=== PATIENT | female | born 1975 | race Caucasian/White ===

== ENCOUNTER → 2017-01-04 | Outpatient (CLI) | payer BC ==
[~2017-01-04] MED LIST: EFF75 PO; FLUT0.15; MULT-506 PO; TAMO20TA9 PO; VALA500T60 PO; VNTHFA/IN INH
[2017-01-04 15:02] VITALS: BP 113/80; PULSE 78; TEMP 36.8; O2SAT 100
--- NOTE | 2017-01-04 16:03 | Radiation Oncology Follow-Up ---
Radiation Oncology Follow-Up Date of Visit January 04, 2017. (Maria Moura PA-C) Reason For Visit One-month follow-up and cancer survivorship care plan (Maria Moura PA-C) Radiation Completion Date 11/24/16 (Maria Moura PA-C) Diagnosis (1) Breast cancer of upper-outer quadrant of right female breast Status: Acute Onset Date: 07/28/2016 Histology Subtype: ductal Stage: l (A) Permanent Comment: Abnormal right breast mammogram Status post core needle biopsy 07/28/2016 Invasive ductal carcinoma grade 1 Estrogen receptor positive, progesterone receptor positive, HER-2/betina negative Status post lumpectomy and sentinel lymph node biopsy 08/24/2016 Stage pT1a pN0M0 Prosigna score of 28 BRCA analysis negative Status post completion of radiation therapy 11/24/2016 received 6640 cGy Last Edited By: Maria Moura on Dec 05, 2016 13:33 (Maria Moura PA-C) History of Present Illness Ms. Redman is a 41-year-old premenopausal female who recently presented in July 2016. The mammogram on 07/15/2016 noted in asymmetry versus summation in the left breast and also a focal group of calcifications in the right breast. The patient then underwent a bilateral diagnostic mammogram and ultrasound on 07/19/2016 which revealed no evidence of malignancy in the left breast however there were fine pleomorphic calcifications in the upper outer quadrant of the right breast. The patient subsequently underwent core biopsies in the right breast at 11 o'clock position which revealed invasive ductal carcinoma that was grade 1. The tumor was noted to be estrogen receptor positive, progesterone receptor positive and HER-2 negative. The patient subsequently underwent an MRI of the breast on 08/05/2016 which only revealed postbiopsy changes in the right breast but no other evidence of disease. The patient subsequently under went a lumpectomy and sentinel lymph node biopsy by Dr. Lucía Diaz on 06/24/2017. The lumpectomy specimen did not reveal any evidence of invasive carcinoma and only biopsy changes. The sentinel lymph nodes were additionally also negative. The patient was seen in consultation by Dr. Raad Butterfield from medical oncology who do not advise for chemotherapy but recommended tamoxifen after the completion of radiation therapy. We are now seeing the patient in consultation to discuss the role of adjuvant radiation therapy. She underwent conventional radiation therapy. This was completed 11/24/2016. She received 6640 cGy. (Maria Moura PA-C) Interim History She's been doing well over the past month. She did have some continued changes of the skin. There was dryness and then some mild peeling. There continues to be a darker discoloration. She has noted no masses or tenderness and no change of the axilla. She's had no swelling of her arm. She was at the beach and did get a sunburn. This was not in the area of treatment. She is currently scheduled for follow-up mammogram on 01/16/2017 at [facility]. She also has follow-up appointments with the breast surgeon and medical oncologist. She is on tamoxifen and is tolerating this well. (Maria Moura PA-C) Allergies Coded Allergies: Cat Dander (Verified Allergy, Mild, Unknown , 09/20/16) Sulfa Antibiotics (Verified Allergy, Mild, Unknown , 09/20/16) Uncoded Allergies: Seasonal (Allergy, Mild, Unknown , 09/20/16) Home Medications Scheduled Multivitamin (Multivitamin), 1 TAB PO DAILY Tamoxifen (Nolvadex), 20 MG PO DAILY Venlafaxine Hcl (Effexor), 75 MG PO DAILY Scheduled PRN Albuterol Hfa (Ventolin Hfa), 2 PUFFS INH Q6H PRN for SOB/Wheezing Fluticasone Propionate (Nasal) (Flonase Allergy Relief), 2 SPRAYS NA DAILY PRN for Notification Valacyclovir (Valtrex), 500 MG PO BID PRN for Documentation Review of Systems Gastrointestinal: Symptoms: WNL Oral: Symptoms: No Problems Respiratory: Symptoms: WNL Other Respiratory: Started coughing - "getting cold" Urinary: Symptoms: WNL Skin: Symptoms: No Problems Other Skin Symptoms: Patient was recently at beach this weekend and was in sun - peeling Breast: Right Upper Arm Measurement: 26.5 Right Mid Arm Measurement: 22.4 Right Wrist Measurement: 15.8 Left Upper Arm Measurement: 26.9 Left Mid Arm Measurement: 22.1 Left Wrist Measurement: 15.4 Arm Dominence: Right Additional Notes: She completed a distress management report and answered "no" to all questions. (Maria Moura PA-C) Physical Exam Vital Signs Date Time Temp Pulse Resp B/P Pulse Ox O2 Delivery O2 Flow Rate FiO2 01/04/17 15:02 36.8 78 16 113/80 100 Fatigue: None General Appearance: no apparent distress Eyes: normal inspection, EOMI ENT: normal ENT inspection, hearing grossly normal Neck: no adenopathy Respiratory/Chest: lungs clear, no respiratory distress, no accessory muscle use Breast: Breast examination reveals well-healed incisions of the right breast. There is resolving hyperpigmentation. There is no wet or dry desquamation. There are no masses or tenderness and no axillary adenopathy. She has no skin retractions or nipple changes. There is no breast edema. Using the [place] score cosmesis she has a good outcome. The left breast showed no masses or tenderness and no axillary adenopathy. Cardiovascular: regular rate, rhythm, no gallop, no murmur Extremities: no pedal edema Neurologic/Psychiatric: no motor/sensory deficits, alert, normal mood/affect Skin: + pertinent finding (resolving sunburn) (Maria Moura PA-C) Assessment & Plan Plan: Continue regular follow-up with her primary care provider as well as breast surgeon and medical oncologist. Follow-up appointments have been scheduled. She has a mammogram scheduled for 01/16/2017 [facility]. She'll be seeing Dr. Lucía Diaz on 01/19/2017. And she'll follow-up with Dr. Butterfield in medical oncology on 03/20/2017. She continues on tamoxifen. Today we completed a cancer survivorship care plan. A copy the document was given to the patient. She was also seen and examined by Dr. Butterfield. We asked her to return to our office in 6 months. She'll call if she has any questions or concerns in the interim. (Maria Moura PA-C) I agree with note created by Maria Moura PA-C. I reviewed the patient's chart and information with her. I have examined and evaluated the patient. I reviewed relevant clinical information and answered the patient's and/or family' s questions. (Veeral. Butterfield MD) Total Time In Follow-Up I spent 20 minutes speaking to the patient and performing examination. I spent 20 minutes reviewing information, preparing the survivorship document, and completing this note. (Maria Moura PA-C) I spent 15 minutes examining and counseling the patient. (Veeral. Butterfield MD) Copy To Lucía Diaz MD; Raad Butterfield M.D.; Karla Mullen PA-C Problem Qualifiers (1) Breast cancer of upper-outer quadrant of right female breast: Estrogen receptor status: positive Qualified Codes: C50.411 - Malignant neoplasm of upper-outer quadrant of right female breast; Z17.0 - Estrogen receptor positive status [ER+]
== END | disposition home or self-care (01) ==
LOC: C.ONC 14:46
PROVIDERS: ATTEND Physician Assistant Medical
DX: Z08 Encounter for follow-up examination after completed treatment for malignant neoplasm (principal); Z92.3 Personal history of irradiation; Z85.3 Personal history of malignant neoplasm of breast

== ENCOUNTER → 2017-07-12 | Outpatient (CLI) | payer BC ==
[2017-07-12 14:30] VITALS: BP 146/84; PULSE 82; TEMP 36.8; O2SAT 99
--- NOTE | 2017-07-12 15:24 | Radiation Oncology Follow-Up ---
Radiation Oncology Follow-Up Date of Visit Jul 12, 2017. Reason For Visit 6 month follow-up Radiation Completion Date 11/24/16 Diagnosis (1) Breast cancer of upper-outer quadrant of right female breast Status: Resolved Onset Date: 07/28/2016 Histology Subtype: ductal Stage: l (A) Permanent Comment: Abnormal right breast mammogram Status post core needle biopsy 07/28/2016 Invasive ductal carcinoma grade 1 Estrogen receptor positive, progesterone receptor positive, HER-2/west negative Status post lumpectomy and sentinel lymph node biopsy 08/24/2016 Stage pT1a pN0M0 Prosigna score of 28 BRCA analysis negative Status post completion of radiation therapy 11/24/2016 received 6640 cGy Last Edited By: Maria Moura on Dec 05, 2016 13:33 History of Present Illness Ms. Redman is a premenopausal female who recently presented in July 2016. The mammogram on 07/15/2016 noted in asymmetry versus summation in the left breast and also a focal group of calcifications in the right breast. The patient then underwent a bilateral diagnostic mammogram and ultrasound on 2015 which revealed no evidence of malignancy in the left breast however there were fine pleomorphic calcifications in the upper outer quadrant of the right breast. The patient subsequently underwent core biopsies in the right breast at 11 o'clock position which revealed invasive ductal carcinoma that was grade 1. The tumor was noted to be estrogen receptor positive, progesterone receptor positive and HER-2 negative. The patient subsequently underwent an MRI of the breast on 08/05/2016 which only revealed postbiopsy changes in the right breast but no other evidence of disease. The patient subsequently under went a lumpectomy and sentinel lymph node biopsy by Dr. Lucía Diaz on 06/24/2017. The lumpectomy specimen did not reveal any evidence of invasive carcinoma and only biopsy changes. The sentinel lymph nodes were additionally also negative. The patient was seen in consultation by Dr. Raad Butterfield from medical oncology who do not advise for chemotherapy but recommended tamoxifen after the completion of radiation therapy. We are now seeing the patient in consultation to discuss the role of adjuvant radiation therapy. She underwent conventional radiation therapy. This was completed 11/24/2016. She received 6640 cGy. Interim History She has been doing well over the past 6 months. She denies any changes to her breast. She is noted no masses or tenderness no change of the axilla. She had no swelling of her arm. She does have a feeling of tightness in the upper anterior shoulder. She does try to exercise on a regular basis. She denies any difficulty with the tamoxifen. She has noted that her periods are further between cycles. This can be up to 45 days. Allergies Coded Allergies: Cat Dander (Verified Allergy, Mild, Unknown , 09/20/16) Sulfa Antibiotics (Verified Allergy, Mild, Unknown , 09/20/16) Uncoded Allergies: Seasonal (Allergy, Mild, Unknown , 09/20/16) Home Medications Scheduled Multivitamin (Multivitamin), 1 TAB PO DAILY Tamoxifen (Nolvadex), 20 MG PO DAILY Venlafaxine Hcl (Effexor), 75 MG PO DAILY Scheduled PRN Albuterol Hfa (Ventolin Hfa), 2 PUFFS INH Q6H PRN for SOB/Wheezing Fluticasone Propionate (Nasal) (Flonase Allergy Relief), 2 SPRAYS NA DAILY PRN for Notification Valacyclovir (Valtrex), 500 MG PO BID PRN for Documentation Review of Systems Gastrointestinal: Symptoms: WNL, Constipation GI Comments: Constipation since starting tamoxifen/effexor Oral: Symptoms: No Problems Respiratory: Symptoms: WNL Urinary: Symptoms: WNL Skin: Symptoms: No Problems Breast: Right Upper Arm Measurement: 26.4 Right Mid Arm Measurement: 22.6 Right Wrist Measurement: 15.5 Left Upper Arm Measurement: 26.5 Left Mid Arm Measurement: 22.4 Left Wrist Measurement: 15.5 Arm Dominence: Right Physical Exam Vital Signs Date Time Temp Pulse Resp B/P (MAP) Pulse Ox O2 Delivery O2 Flow Rate FiO2 07/12/17 14:30 36.8 82 16 146/84 99 Fatigue: None General Appearance: no apparent distress Eyes: normal inspection, EOMI ENT: normal ENT inspection, hearing grossly normal Neck: no adenopathy, thyroid normal Respiratory/Chest: lungs clear, no respiratory distress, no accessory muscle use Breast: Right breast examination reveals well-healed incisions. There are no masses or tenderness and no axillary adenopathy. There is very slight hyperpigmentation. There are no skin retractions or nipple changes. Using the [place] score cosmesis she has a good outcome. The left breast reveals no masses or tenderness no axillary adenopathy. Cardiovascular: regular rate, rhythm, no gallop, no murmur Extremities: no pedal edema Neurologic/Psychiatric: no motor/sensory deficits, alert, normal mood/affect Skin: warm/dry Lymphatic: no adenopathy Pain Management Pain Rating (0-10): 0 Pain Management Plan She has no pain therefore requires no pain management. Additional Studies 01/16/2017 9:13 AM - Interface, Rad In Narrative 41-year-old with history of invasive ductal carcinoma, grade 1-3 with lobular features, ER, DC positive HER2 West negative originally diagnosed at stereotactic biopsy in July 2016. Patient underwent excisional biopsy and sentinel node biopsy in August 2016 at which time no residual cancer was identified. She recently completed radiation therapy. She has no breast complaints. CC and MLO images of the right breast were obtained using tomosynthesis. 2D reconstructions were created using C-view. Comparison is made to images from 08/24/2016, 07/28/2016 (right), 07/19/2016 ( bilateral), 07/15/2016 (bilateral), 07/31/2015 (bilateral), 07/24/2014 (bilateral), 01/18/2011 ( bilateral) and 02/08/2000. Right Breast Findings: The breast is extremely dense (greater than 75% fibroglandular) which could obscure a lesion on mammography. Architectural distortion at the site of excisional biopsy is as anticipated. The calcifications initially associated with invasive ductal carcinoma have been completely removed. Scattered punctate calcifications in other areas of the breast are unchanged. There are no new calcifications, masses nor areas of and explained architectural distortion. Authenticated By Authenticating Date Authenticating Time Reading Providers(s) ONI OROZCO MD 01-16-2017 09:13 ONI OROZCO MD IMPRESSION: RIGHT BREAST: Findings are probably benign. A short interval follow-up is recommended in 6 months. I personally discussed the above findings and recommendations with the patient while she was in the department of radiology. This digital mammogram has been analyzed with the computer aided detection system. This notice contains the results of your recent mammogram, including information about breast density. If your mammogram shows that your breast tissue is dense, you should know that dense breast tissue is a common finding and is not abnormal. Statistics show many women could have dense or highly dense breasts. Dense breast tissue can make it harder to find cancer on a mammogram and may be associated with an increased risk of cancer. This information about the result of your mammogram is given to you to raise your awareness and to inform your conversations with your physician. Together, you can decide which screening options are right for you, based on your mammogram results, individual risk factors or physical examination. A report of your results was sent to your physician. Your mammographic breast density on today's study is described above. There are four categories of breast density on mammography. Fatty breasts and those with scattered fibroglandular tissue are not considered dense. Heterogeneously dense or extremely dense tissue is considered "dense". Please understand that assessment of breast density may vary from year to year. OVERALL ASSESSMENT - CATEGORY 3 - PROBABLY BENIGN END OF IMPRESSION Assessment & Plan Plan: Patient is also seen and examined by Dr. Butterfield. She'll continue regular follow-up with Dr. Diaz, Dr. Butterfield, and her primary care physician. She continues on tamoxifen. We discussed stretching exercises for the tightness that she feels in the shoulder. She has a recheck mammogram scheduled next week and then a follow-up appointment with Dr. Diaz in 2 weeks. We asked to return to our office in 1 year. She may call if she has any questions or concerns in the interim. Assessment & Plan (Attending) ADDENDUM: I agree with note created by Maria Moura PA-C. I reviewed the patient's chart and information with her. I have examined and evaluated the patient. I reviewed relevant clinical information and answered the patient's and /or family's questions. REDUCING SALON ATTENDANT Total Time In Follow-Up I spent 20 minutes speaking to the patient performing examination. I spent 15 minutes reviewing information and completing this note. Total Time (Attending) In Follow-Up I spent 15 minutes examining and counseling the patient. REDUCING SALON ATTENDANT Copy To Lucía Diaz MD; Raad Butterfield M.D.; Karla Mullen PA-C Problem Qualifiers (1) Breast cancer of upper-outer quadrant of right female breast: Estrogen receptor status: positive Qualified Codes: C50.411 - Malignant neoplasm of upper-outer quadrant of right female breast; Z17.0 - Estrogen receptor positive status [ER+]
== END | disposition home or self-care (01) ==
LOC: C.ONC 14:26
PROVIDERS: ATTEND Physician Assistant Medical
DX: Z08 Encounter for follow-up examination after completed treatment for malignant neoplasm (principal); Z92.3 Personal history of irradiation; Z85.3 Personal history of malignant neoplasm of breast

== ENCOUNTER → 2018-03-23 | Outpatient (CLI) | payer OTHER ==
--- NOTE | 2018-03-23 15:03 | DIAGNOSTIC IMAGING REPORT ---
SINUS CT CT DOSE: 249.12 mGycm HISTORY: Fever. SINUSITIS TECHNIQUE: Multiaxial CT images of the paranasal sinuses were performed and reformatted in the coronal plane without the use of contrast. A dose lowering technique was utilized adhering to the principles of ALARA. COMPARISON: None. FINDINGS: The frontal sinuses, sphenoid sinuses, and right maxillary sinus are clear. Mild mucosal thickening within the ethmoid air cells and within the left maxillary sinus anteriorly. No fluid levels within the paranasal sinuses. The mastoid air cells are clear. The bilateral ostiomeatal units are patent. The nasal septum is midline. The orbits and visualized brain parenchyma are unremarkable. IMPRESSION: 1. Mild mucosal thickening within the paranasal sinuses suggestive of chronic change. No fluid levels identified. 2. The mastoid air cells are clear. Electronically signed by: Jossue Márquez M.D. 03/23/2018 3:01 PM Dictated Date/Time: 03/23/2018 2:57 PM
== END | disposition home or self-care (01) ==
LOC: C.CTS 14:24
PROVIDERS: ATTEND Family Medicine
DX: J01.91 Acute recurrent sinusitis, unspecified (principal)

== ENCOUNTER 2018-03-26 09:56 | Emergency (ER) | payer OTHER ==
[~2018-03-26] VITALS: Ht 165.1 cm; Wt 65.9 kg
[2018-03-26 09:58] VITALS: Ht 165.1 cm; Wt 65.9 kg
[2018-03-26] MEDS ORDERED: SODIUM CHLORIDE 0.9% 1000ML 2,000 ML IV STA (10:34)
--- NOTE | 2018-03-26 11:08 | DIAGNOSTIC IMAGING REPORT ---
CHEST ONE VIEW PORTABLE CLINICAL HISTORY: cough dyspnea COMPARISON STUDY: No previous studies for comparison. FINDINGS: The bones soft tissues and hemidiaphragms are normal. The cardiomediastinal silhouette is normal. The lungs are clear. The pulmonary vasculature is normal. IMPRESSION: Negative chest. The above report was generated using voice recognition software. It may contain grammatical, syntax or spelling errors. Electronically signed by: Jose M De León M.D. 03/26/2018 11:07 AM Dictated Date/Time: 03/26/2018 11:07 AM
[2018-03-26 11:24] LABS: BASO % 0.2 %; BASO ABS # 0.01 K/uL (0-0.2); EOS ABS # 0.06 K/uL (0-0.5); HEMATOCRIT 34.4 % (37-47); HEMOGLOBIN 11.4 g/dL (12.0-16.0); IG# 0.01 K/uL (0.00-0.02); LYMPH % 18.8 %; LYMPH ABS # 1.16 K/uL (1.2-3.4); MEAN CELL VOLUME 90.1 fL (80-100); MEAN CORPUSCULAR HEMOGLOBIN 29.8 pg (25-34); MEAN CORPUSCULAR HGB CONC 33.1 g/dl (32-36); MEAN PLATELET VOLUME 9.5 fL (7.4-10.4); MONO % 6.3 %; MONO ABS # 0.39 K/uL (0.11-0.59); NEUT % 73.5 %; NEUT ABS # 4.55 K/uL (1.4-6.5); PLATELET COUNT 379 K/uL (130-400); RED CELL DISTRIBUTION WIDTH CV 11.8 % (11.5-14.5); RED CELL DISTRIBUTION WIDTH SD 38.4 fL (36.4-46.3); WHITE BLOOD COUNT 6.18 K/uL (4.8-10.8)
[2018-03-26 11:47] LABS: INFLUENZA B ANTIGEN Neg for Influ B (NEG)
[2018-03-26 11:52] LABS: ALBUMIN 2.8 gm/dl (3.4-5.0); CREATININE 0.66 mg/dl (0.60-1.20); POTASSIUM 3.5 mmol/L (3.5-5.1); TOTAL PROTEIN 8.1 gm/dl (6.4-8.2)
--- NOTE | 2018-03-26 12:45 | DIAGNOSTIC IMAGING REPORT ---
SOFT TISSUE NECK WITH CLINICAL HISTORY: ? retrophar abscess trouble swallowing fevers x 2 wks dysphagia TECHNIQUE: Transaxial acquisition with multi axial reformatted images COMPARISON STUDY: None FINDINGS: Major salivary glands are unremarkable. The oral airway appears to be intact. There is no evidence for peritonsillar collection or abscess. Fascial planes appear intact. The epiglottis is normal. The vallecula and piriform sinuses are unremarkable. The glottic and subglottic regions are unremarkable. There is no evidence for mass or collection. IMPRESSION: Negative study The above report was generated using voice recognition software. It may contain grammatical, syntax or spelling errors. Electronically signed by: Jose M De León M.D. 03/26/2018 12:44 PM Dictated Date/Time: 03/26/2018 12:41 PM
[2018-03-26 13:10] VITALS: BP 125/70; PULSE 91; TEMP 36.7; O2SAT 100
--- NOTE | 2018-03-26 16:42 | EMERGENCY ROOM VISIT NOTE ---
History Report prepared by Keisha: Ketan Yañez Under the Supervision of: India MagallonO. First contact with patient: 10:18 Chief Complaint: FEVER Stated Complaint: EARACHE,FEVER,SORETHROAT,HEADACHE History of Present Illness The patient is a 42 year old female who presents to the Emergency Room with complaints of cough, congestion, postnasal drip, sore throat and fevers beginning 5 weeks ago. The patient reports that she had a sinus CT scan 3 days ago that was normal. She notes that she has been on 3 different antibiotics: Amoxicillin, cefuroxime, and Levaquin. She reports that she had a fever above 100.4 and states that she has been taking Advil. She reports a subjective fever for the past 3 weeks, and states that she has been recording temperature for the past 1.5 weeks. She notes a current headache, and states that her ears feel clogged. She states that she experiences pain when she swallows that began on the right and radiated to the left. She reports that she has not been around people with illness recently. The patient denies burning pain with urination. Source of History: patient Onset: 5 weeks ago Position: ear, throat, other (global) Symptom Intensity: highest fever above 100.4 Quality: other (fevers, sore throat, postnasal drip, congestion, cough) Modifying Factors (Relieving): ibuprofen (Advil) Associated Symptoms: No urinary symptoms Review of Systems See HPI for pertinent positives & negatives. A total of 10 systems reviewed and were otherwise negative. Past Medical & Surgical Medical Problems: (1) Breast cancer of upper-outer quadrant of right female breast Family History Cancer Social History Smoking Status: Never Smoker Current/Historical Medications Scheduled Multivitamin (Multivitamin), 1 TAB PO DAILY Tamoxifen (Nolvadex), 20 MG PO DAILY Venlafaxine Hcl (Effexor), 75 MG PO DAILY Scheduled PRN Albuterol Hfa (Ventolin Hfa), 2 PUFFS INH Q6H PRN for SOB/Wheezing Fluticasone Propionate (Nasal) (Flonase Allergy Relief), 2 SPRAYS NA DAILY PRN for Notification Valacyclovir (Valtrex), 500 MG PO BID PRN for Documentation Allergies Coded Allergies: Cat Dander (Verified Allergy, Mild, Unknown , 03/26/18) Sulfa Antibiotics (Verified Allergy, Mild, Unknown , 03/26/18) Uncoded Allergies: Seasonal (Allergy, Mild, Unknown , 09/20/16) Physical Exam Vital Signs Date Time Temp Pulse Resp B/P (MAP) Pulse Ox O2 Delivery O2 Flow Rate FiO2 03/26/18 13:10 36.7 91 18 125/70 100 03/26/18 12:50 91 18 125/70 100 Room Air 03/26/18 11:37 18 124/76 Room Air 03/26/18 09:58 36.7 106 18 136/90 98 Room Air Physical Exam GENERAL: Sitting up in bed, alert, well appearing, well nourished, no distress, non-toxic EYE EXAM: normal conjunctiva. PERRL and EOM's grossly intact. OROPHARYNX: no exudate, no erythema, lips, buccal mucosa, and tongue normal and mucous membranes are moist EARS: Right TM with fluid posteriorly. No bulging or erythema. NECK: supple, no nuchal rigidity, no adenopathy, non-tender LUNGS: Clear to auscultation. Normal chest wall mechanics HEART: no murmurs, S1 normal and S2 normal ABDOMEN: abdomen soft, non-tender, normo-active bowel sounds, no masses, no rebound or guarding. BACK: Back is symmetrical on inspection and there is no deformity, no midline tenderness, no CVA tenderness. SKIN: no rashes and no bruising UPPER EXTREMITIES: upper extremities are grossly normal. LOWER EXTREMITIES: No pitting edema. NEURO EXAM: Normal sensorium, cranial nerves II-XII grossly intact, normal speech, no gross weakness of arms, no gross weakness of legs. Medical Decision & Procedures ER Provider Diagnostic Interpretation: Radiology results as stated below per my review and the radiologist's interpretation: SOFT TISSUE NECK WITH CLINICAL HISTORY: ? retrophar abscess trouble swallowing fevers x 2 wks dysphagia TECHNIQUE: Transaxial acquisition with multi axial reformatted images COMPARISON STUDY: None FINDINGS: Major salivary glands are unremarkable. The oral airway appears to be intact. There is no evidence for peritonsillar collection or abscess. Fascial planes appear intact. The epiglottis is normal. The vallecula and piriform sinuses are unremarkable. The glottic and subglottic regions are unremarkable. There is no evidence for mass or collection. IMPRESSION: Negative study The above report was generated using voice recognition software. It may contain grammatical, syntax or spelling errors. Electronically signed by: Jose M De León M.D. 03/26/2018 12:44 PM Dictated Date/Time: 03/26/2018 12:41 PM CHEST ONE VIEW PORTABLE CLINICAL HISTORY: cough dyspnea COMPARISON STUDY: No previous studies for comparison. FINDINGS: The bones soft tissues and hemidiaphragms are normal. The cardiomediastinal silhouette is normal. The lungs are clear. The pulmonary vasculature is normal. IMPRESSION: Negative chest. The above report was generated using voice recognition software. It may contain grammatical, syntax or spelling errors. Electronically signed by: Jose M De León M.D. 03/26/2018 11:07 AM Dictated Date/Time: 03/26/2018 11:07 AM Laboratory Results 03/26/18 11:00 Red Blood Count 3.82, Mean Corpuscular Volume 90.1, Mean Corpuscular Hemoglobin 29.8, Mean Corpuscular Hemoglobin Concent 33.1, Mean Platelet Volume 9.5, Neutrophils (%) (Auto) 73.5, Lymphocytes (%) (Auto) 18.8, Monocytes (%) (Auto) 6.3, Eosinophils (%) (Auto) 1.0, Basophils (%) (Auto) 0.2, Neutrophils # (Auto) 4.55, Lymphocytes # (Auto) 1.16, Monocytes # (Auto) 0.39, Eosinophils # (Auto) 0.06, Basophils # (Auto) 0.01 03/26/18 11:00 Test 03/26/18 11:00 03/26/18 11:20 White Blood Count 6.18 K/uL (4.8-10.8) Red Blood Count 3.82 M/uL (4.2-5.4) Hemoglobin 11.4 g/dL (12.0-16.0) Hematocrit 34.4 % (37-47) Mean Corpuscular Volume 90.1 fL (80-100) Mean Corpuscular Hemoglobin 29.8 pg (25-34) Mean Corpuscular Hemoglobin Concent 33.1 g/dl (32-36) Platelet Count 379 K/uL (130-400) Mean Platelet Volume 9.5 fL (7.4-10.4) Neutrophils (%) (Auto) 73.5 % Lymphocytes (%) (Auto) 18.8 % Monocytes (%) (Auto) 6.3 % Eosinophils (%) (Auto) 1.0 % Basophils (%) (Auto) 0.2 % Neutrophils # (Auto) 4.55 K/uL (1.4-6.5) Lymphocytes # (Auto) 1.16 K/uL (1.2-3.4) Monocytes # (Auto) 0.39 K/uL (0.11-0.59) Eosinophils # (Auto) 0.06 K/uL (0-0.5) Basophils # (Auto) 0.01 K/uL (0-0.2) RDW Standard Deviation 38.4 fL (36.4-46.3) RDW Coefficient of Variation 11.8 % (11.5-14.5) Immature Granulocyte % (Auto) 0.2 % Immature Granulocyte # (Auto) 0.01 K/uL (0.00-0.02) Anion Gap 7.0 mmol/L (3-11) Est Creatinine Clear Calc Drug Dose 98.9 ml/min Estimated GFR () 125.4 Estimated GFR (Non- 108.2 BUN/Creatinine Ratio 13.9 (10-20) Calcium Level 9.0 mg/dl (8.5-10.1) Total Bilirubin 0.3 mg/dl (0.2-1) Direct Bilirubin 0.1 mg/dl (0-0.2) Aspartate Amino Transf (AST/SGOT) 11 U/L (15-37) Alanine Aminotransferase (ALT/SGPT) 36 U/L (12-78) Alkaline Phosphatase 56 U/L (45-117) Total Protein 8.1 gm/dl (6.4-8.2) Albumin 2.8 gm/dl (3.4-5.0) Lipase 124 U/L (73-393) Urine Color YELLOW Urine Appearance CLEAR (CLEAR) Urine pH 8.0 (4.5-7.5) Urine Specific [place] 1.012 (1.000-1.030) Urine Protein NEG (NEG) Urine Glucose (UA) NEG (NEG) Urine Ketones NEG (NEG) Urine Occult Blood NEG (NEG) Urine Nitrite NEG (NEG) Urine Bilirubin NEG (NEG) Urine Urobilinogen NEG (NEG) Urine Leukocyte Esterase NEG (NEG) Urine WBC (Auto) 0 /hpf (0-5) Urine RBC (Auto) 0-4 /hpf (0-4) Urine Hyaline Casts (Auto) 1-5 /lpf (0-5) Urine Epithelial Cells (Auto) 10-20 /lpf (0-5) Urine Bacteria (Auto) NEG (NEG) Urine Test NEG (NEG) Influenza Type A Antigen Neg for Influ A (NEG) Influenza Type B Antigen Neg for Influ B (NEG) Laboratory results per my review. Medications Administered Medications (Trade) Dose Ordered Sig/Isel[place] Route Start Time Stop Time Status Last Admin Dose Admin Sodium Chloride 2,000 ml @ 999 mls/hr Q2H1M STAT IV 03/26/18 10:34 03/26/18 12:34 DC 03/26/18 10:34 999 MLS/HR ED Course ED COURSE: Vital signs were reviewed and showed normal vitals The patients medical record was reviewed The above diagnostic studies were performed and reviewed. ED treatments and interventions as stated above. 1025: The patient was evaluated in room A11A. A complete history and physical examination was performed. 1034: Ordered Sodium Chloride 2000 ml @ 999 mls/hr IV 1203: I updated with the patient, who currently feels comfortable. She is going to CT scan. 1305: Upon reevaluation, the patient is resting. I discussed my findings with the patient and she understands and agrees with the treatment plan. Based on the patients age, coexisting illnesses, exam and lab findings the decision to treat as an outpatient was made. The patient remained stable while under my care. The patient appeared well at the time of discharge. Medical Decision Differential diagnosis includes etiologies such as sepsis, UTI, pneumonia, metabolic, electrolyte abnormalities, cardiac sources, intracerebral event, toxicologic, neurologic, as well as others were entertained. Patient is a 42-year-old female who presents the ER for 3 weeks worth of a cough , congestion, postnasal drip, sore throat and fevers. CBC normal BMP, LFTs, bilirubin and lipase is unremarkable. UA is negative. is negative. CT of the neck and chest x-ray were unremarkable. Patient is otherwise well- appearing. She is currently still on antibiotics. There is no signs of meningitis or encephalitis. No other sources for the cause of her infection. Her symptoms do appear to be consistent with a viral URI. Recommended following back up with PCP as an outpatient. Discussed with Pt concerning signs and symptoms to watch out for. Pt was instructed to follow up with their PCP and discussed with the patient their option to return to the ED at anytime for persistent or worsening symptoms. The appropriate anticipatory guidance and out- patient management, including indications for return to the emergency department , were explained at length to the patient and understood. Medication Reconcilliation Current Medication List: was personally reviewed by me Blood Pressure Screening Patient's blood pressure: Normal blood pressure Blood pressure disposition: Did not require urgent referral Impression Primary Impression: URI (upper respiratory infection) Scribe Attestation The scribe's documentation has been prepared under my direction and personally reviewed by me in its entirety. I confirm that the note above accurately reflects all work, treatment, procedures, and medical decision making performed by me. Departure Information Dispostion Home / Self-Care Referrals Karla Mullen PA-C (PCP) Forms HOME CARE DOCUMENTATION FORM, IMPORTANT VISIT INFORMATION Patient Instructions My [facility] Additional Instructions Please follow up with your primary care doctor with in the next 24 hours. Any worsening of your symptoms, please return to the ED immediately. This includes any fevers greater than 100.4, worsening pain, chest pain, shortness breath, persistent nausea, vomiting, unable to eat or drink, or any other concerning signs or symptoms from your standpoint. Please make sure that you follow-up with your primary care doctor as stated above.
== END 2018-03-26 13:16 | disposition home or self-care (01) ==
LOC: C.EDB 09:57 → C.EDA 13:16
DX: J06.9 Acute upper respiratory infection, unspecified (principal); Z79.899 Other long term (current) drug therapy; Z91.09 Other allergy status, other than to drugs and biological substances; Z88.2 Allergy status to sulfonamides